=== PATIENT | female | born 1935 | race Caucasian/White ===

== ENCOUNTER → 2016-09-11 | Outpatient (CLI) | payer OTHER ==
[2016-09-11 12:02] LABS: FREE T4 (FREE THYROXINE) 1.08 ng/dL (0.93-1.71)
== END ==
LOC: MOB LAB 09:18
PROVIDERS: ATTEND Family Medicine
DX: E03.9 Hypothyroidism, unspecified (principal); I10 Essential (primary) hypertension; E66.9 Obesity, unspecified
CPT/HCPCS: 36415; 84439; 84443

== ENCOUNTER → 2016-09-12 | Outpatient (CLI) | payer OTHER | LOC: MMPC 09:00 | PROVIDERS: ATTEND Family Medicine | DX: I10 Essential (primary) hypertension (principal); E03.9 Hypothyroidism, unspecified; E66.8 Other obesity | CPT/HCPCS: 99213; G0463 ==

== ENCOUNTER 2017-09-17 16:50 | Observation (INO) ==
[2017-09-17] MEDS ORDERED: Sodium Chloride 0.9% 1,000 ML PRIMARY IV ONE (17:10)
[2017-09-17] MEDS ORDERED: DILTIAZEM 5 MG/ML - 5 ML IV ONE (17:10)
--- NOTE | 2017-09-17 17:12 | EKG ---
[address] [id number] Measurements Intervals Kake Rate: 141 P: IN: 0 QRS: 4 QRSD: 93 T: 56 QT: 300 QTc: 382 Interpretive Statements ATRIAL FIBRILLATION WITH RAPID VENTRICULAR RESPONSE SEPTAL MYOCARDIAL INFARCTION [40+ ms Q WAVE IN V1/V2], PROBABLY OLD Compared to ECG 04/08/2014 10:16:48 Myocardial infarct finding now present Sinus rhythm no longer present T-wave abnormality no longer present Electronically Signed On 09-18-17 08:37:06 MDT by Blair Hedrick MD [email or web address]
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
--- NOTE | 2017-09-17 18:25 | DI ---
AP CHEST X-RAY, 09/17/2017 5:10 PM : Clinical History: Irregular heart rate. Previous Exam: None at this facility. There is no acute soft tissue or bony abnormality. There is cardiomegaly without CHF. Lungs are clear . Mediastinal structures are normal. There are no pulmonary nodules. Reading: Mild cardiomegaly without CHF.
[2017-09-17] MEDS ORDERED: ENOXAPARIN SODIUM 80 MG/0.8 ML SYRINGE SUBCUT SCH (19:51)
[2017-09-17] MEDS ORDERED: LIDOCAINE W/ SODIUM BICARB 0.5 ML SYR SUBD PRN (19:51)
[2017-09-17] MEDS ORDERED: ENOXAPARIN SODIUM 100 MG/1 ML SYRINGE SUBCUT SCH (20:15)
[2017-09-17] MEDS ORDERED: Apixaban Tab 2.5 MG TABLET PO ONE (22:08)
[2017-09-17] MEDS: Metoprolol TARTRATE Tab 25 MG TAB PO SCH (22:56)
--- NOTE | 2017-09-17 23:59 | PDOC ---
HPI - History of Present Illness Date of Service: 09/17/17 Time of Service: 19:30 Chief Complaint: Not feeling well History of Present Illness: This very pleasant 82-year-old female who has underlying hypothyroidism, hypertension, and went into the clinic today to see her provider, Dr. Hua, for complaints of not feeling well. She described not feeling well as having butterfly-like sensations in her body and feeling like her abdomen was a little tight. She did not feel short of breath, she denies any chest pain, and she's never had this sensation before. She states it started on Saturday. She was little more fatigued and slept a lot on Saturday and Saturday when she was sleeping her symptoms seem to be better. She did not notice any other exacerbating factors that made her feel better or worse. In the clinic, she had an EKG that showed atrial fibrillation with rapid ventricular response and she was sent to the emergency room after some lab draws including her thyroid studies which did show a slightly elevated free T4 and an elevated TSH. She states to me that she sometimes misses some doses but is fairly compliant with her Synthroid. She's never had atrial fibrillation before. In the emergency room, she was given 15 mg of Cardizem, but she states that her butterfly-like sensation in her abdomen and body seemed to improve prior to Cardizem administration. Her heart rate in the emergency room was as high as 180 and it came down to 75. She did not spontaneously convert into sinus rhythm. She had an elevated d-dimer as well had a creatinine of 1.6 and it was felt that a VQ scan would be a good study to do to check for pulmonary embolism. She does not drink alcohol. She does not smoke. She has never had a prior heart attack. Her brain natruretic peptide was elevated. No prior echocardiogram or stress test. She does mention that about 20 years ago she may have had a possible stroke, but they were not clear after workup what she had had happened. She states that one of her feet, I believe the left lung, does not lift quite as well as the right. She states that is chronic. Past Medical History Medical History: 1. Hypothyroidism. 2. Hypertension Surgical History: Cholecystectomy Pertinent Family History: Significant for blood clots in her daughter and in several siblings Past Social History: Does not smoke or drink alcohol. . 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 Has 1 daughter who is described as healthy. Tobacco Use: Never Smoker In the Past 12 Months, Have Used or Abuse Any of the Following Substance: None Alcohol Use: None Medication / Allergies Home Medications: Home Medications 3 Medication Instructions Recorded Confirmed Type levothyroxine 88 mcg tablet 88 mcg PO DAILY #90 tab 04/11/17 09/17/17 Rx lisinopril 20 mg tablet 20 mg PO QD #90 tab 04/11/17 09/17/17 Rx lisinopril 20 1 tab PO QD #90 tab 04/11/17 09/17/17 Rx mg-hydrochlorothiazide 25 mg tablet Allergies/Adverse Reactions: Allergies 3 Allergy/AdvReac Type Severity Reaction Status Date / Time Penicillins AdvReac Unknown RASH Verified 09/17/17 17:34 Review of Systems - Review of Systems All Systems: Reviewed & No Additional Complaints Except as Stated (I did a 12 point review systems and it was negative other than that discussed in the history of present illness and then noted below.) - Musculoskeletal Musculoskeletal: REPORTS: Other (States that she has arthritis but well controlled.) Exam - Vitals Vital Signs: Vital Signs Temperature 97.7 F Temperature Source Temporal Artery Scan Pulse Rate [Pulse Oximeter 61 Right] Pulse Rate [Apical] 100 Pulse Rate [Telemetry] 181 Pulse Rate [Pulse Oximeter] 61 Pulse Rate 68 Respiratory Rate 20 Blood Pressure [Left Arm] 138/79 Blood Pressure 115/58 Pulse Ox 97 Oxygen Delivery Method Room Air Height 5 ft 7 in Weight 194 lb 4 oz - General General Appearance: No Acute Distress, Cooperative - Head Head Exam: Normal Inspection, Normocephalic, Atraumatic - Eye Eye Exam: POSITIVE: No Scleral Icterus - ENT ENT Exam: POSITIVE: Mucous Membranes Moist - Neck Neck Exam: Normal Inspection, No Tenderness, No Lymphadenopathy, No Thyromegaly , JVP is not Raised - Respiratory Respiratory Exam: POSITIVE: Clear to Auscultation - Bilaterally, Breathing Non Labored, Normal to Percussion and Palpation - Cardiovascular Cardiovascular Exam: POSITIVE: No Murmur, No Clicks, No Gallops, No Rubs, Irregular Rhythm, No JVD - GI/Abdominal GI/Abdominal Exam: POSITIVE: Normal Bowel Sounds, Non Tender, Non Distended, Soft - Rectal Rectal Exam: POSITIVE: Deferred - External Exam: POSITIVE: Deferred Exam: POSITIVE: Deferred - Extremities Extremities Exam: POSITIVE: No Clubbing Present, No Edema Present, No Cyanosis Present - Neurological Neurological Exam: POSITIVE: Alert, Oriented x 3, No Facial Droop, Speech Intact / Clear, Moves All Extremities Equally - Psychiatric Psychiatric Exam: POSITIVE: Normal Affect, Normal Mood - Integumentary Integumentary Exam: POSITIVE: Normal Color, Warm, Dry, Intact Results - Labs Additional Lab Results: 09/17/17 09/17/17 09/17/17 16:19 16:19 16:19 WBC 7.85 RBC 5.31 Hgb 15.2 Hct 46.3 MCV 87.2 MCH 28.6 MCHC 32.8 L RDW Std Deviation 45.1 RDW Coeff of Kade 14.2 Plt Count 263 MPV 10.9 PT INR D-Dimer Sodium 139 Potassium 4.7 Chloride 104 Carbon Dioxide 20 L Anion Gap 15 BUN 29 H Creatinine 1.6 H BUN/Creatinine Ratio 18.12 Glucose 131 H Calculated Osmolality 295.0 H Calcium 9.4 Magnesium Total Bilirubin 0.6 AST 28 ALT 33 Alkaline Phosphatase 74 CK-MB (CK-2) Troponin I Handheld Troponin I NT-Pro-B Natriuret Pep 5450 H Total Protein 7.3 Albumin 4.0 Globulin 3.3 Albumin/Globulin Ratio 1.20 L TSH 7.59 H Free T4 1.98 H 09/17/17 09/17/17 09/17/17 16:55 16:55 16:55 WBC RBC Hgb Hct MCV MCH MCHC RDW Std Deviation RDW Coeff of Kade Plt Count MPV PT 10.0 INR 0.97 D-Dimer 2.22 H Sodium Potassium Chloride Carbon Dioxide Anion Gap BUN Creatinine BUN/Creatinine Ratio Glucose Calculated Osmolality Calcium Magnesium 1.7 Total Bilirubin AST ALT Alkaline Phosphatase CK-MB (CK-2) 1.89 Troponin I Handheld Troponin I NT-Pro-B Natriuret Pep Total Protein Albumin Globulin Albumin/Globulin Ratio TSH Free T4 09/17/17 09/17/17 16:55 20:15 WBC RBC Hgb Hct MCV MCH MCHC RDW Std Deviation RDW Coeff of Kade Plt Count MPV PT INR D-Dimer Sodium Potassium Chloride Carbon Dioxide Anion Gap BUN Creatinine BUN/Creatinine Ratio Glucose Calculated Osmolality Calcium Magnesium Total Bilirubin AST ALT Alkaline Phosphatase CK-MB (CK-2) Troponin I Handheld 0.020 Troponin I 0.024 NT-Pro-B Natriuret Pep Total Protein Albumin Globulin Albumin/Globulin Ratio TSH Free T4 - EKG Data -: EKG Interpreted by Me Rate: Tachycardia - EKG Data When Compared to Previous EKG(s) There Are: Other (Prior EKG did not have atrial fibrillation) EKG Interpretation: Other (Atrial fibrillation with rapid ventricular response) - Imaging Status: Image Reviewed by Me (On my view of the chest x-ray, the patient had a slightly globular heart perhaps slightly enlarged, but no evidence of congestive heart failure) AFib Stroke Risk Screening - AFib Stroke Risk (CHADS-VASc) Atrial Fibrillation Ischemic Stroke Risk Factors: Hypertension (Placing on eliquis), Female, Age 75 years or older CHADS-VASc Score (A-Fib Stroke Risk Score): 4 CHADS-VASc Risk: High Risk Assessment and Plan - Patient Problems (1) Atrial fibrillation with rapid ventricular response Current Visit: Yes Status: Acute Code(s): I48.91 - Unspecified atrial fibrillation (2) Hypertension Current Visit: Yes Status: Acute Code(s): I10 - Essential (primary) hypertension Qualifiers: Hypertension type: essential hypertension Qualified Code(s): I10 - Essential (primary) hypertension (3) Hypothyroidism Current Visit: Yes Status: Acute Code(s): E03.9 - Hypothyroidism, unspecified Qualifiers: Hypothyroidism type: acquired Qualified Code(s): E03.9 - Hypothyroidism, unspecified (4) Chronic kidney disease, stage III (moderate) Current Visit: Yes Status: Acute Code(s): N18.3 - Chronic kidney disease, stage 3 (moderate) (5) Elevated d-dimer Current Visit: Yes Status: Acute Code(s): R79.89 - Other specified abnormal findings of blood chemistry - Assessment / Plan Additional Assessment/Plan Details: Admit the patient for observation, given the patient is rate controlled either with or without Cardizem, I think that she would benefit from beta blockade, and rate control. We discussed this at length and I'll start her on metoprolol 25 mg twice a day and stop the combine lisinopril/hydrochlorothiazide. Continue and hypertensive. We discussed anticoagulations. The patient and I spoke in depth regarding Coumadin versus Xarelto versus Eliquis, including all risks and benefits, risks being bleeding complications and possible pitfalls of not being able to reverse bleeding with antidotes, and benefits cream treatment of blood clot, lack of drug interactions, and ease of therapy in terms of lab monitoring. We also spoke about aspirin. I spoke with the patient and her daughter at bedside. The patient would like to be on Eliquis for stroke prevention. Her chads vasc to score is 4. Given her age, and creatinine, this would be 2.5 mg by mouth twice a day. Patient would benefit from a workup for coronary artery disease given that this is most likely underlying cause of atrial fibrillation at her age, there does not seem to be any underlying cause for this otherwise. The TSH and free T4 are difficult to interpret in this setting given an elevated TSH and an elevated free T4. I will not change her dose of Synthroid at this time. This should be retested. I recommended going ahead with a VQ scan to make sure there is no pulmonary emboli although I doubt this be the case. Given her age and creatinine at 1.6, and a little reluctant to do a contrast study CTA scan of the chest. I do think the patient would benefit from an echocardiogram. We will try to arrange an echocardiogram and a cardiology evaluation of that echocardiogram for the patient. She is not interested and stent placement and I'll make sure that the tube former operator we refer the patient to understands that. Labs in a.m.
[2017-09-18 01:51] LABS: BASOPHILS # (AUTO) 0.02 10*3/UL; BASOPHILS % (AUTO) 0.3 % (0-1); EOSINOPHILS # (AUTO) 0.19 10*3/UL; EOSINOPHILS % (AUTO) 2.7 % (0-8); Hematocrit [HCT] 41.4 % (37.0-47.0); Hemoglobin [HGB] 13.5 g/dL (12.0-16.0); MEAN CORPUSCULAR HEMOGLOBIN 28.8 PG (27-31); MEAN CORPUSCULAR HGB CONC 32.6 g/dL (33-37); MEAN CORPUSCULAR VOLUME 88.3 FL (81-99); MEAN PLATELET VOLUME 10.1 FL (7.4-12.2); MONOCYTES # (AUTO) 0.61 10*3/UL (0.3-0.8); MONOCYTES % (AUTO) 8.7 % (5-15); NEUTROPHILS # (AUTO) 3.69 10*3/UL; NEUTROPHILS % (AUTO) 52.6 % (50-80); RED BLOOD COUNT 4.69 10^6/uL (4.20-5.40)
[2017-09-18 02:02] LABS: PLATELET MORPHOLOGY COMMENT NORMAL MORPHOLOGY (NORM); RBC MORPHOLOGY COMMENT NORMAL MORPHOLOGY (NORM); WBC MORPHOLOGY COMMENT NORMAL MORPHOLOGY (NORM)
[2017-09-18] MEDS ORDERED: LEVOTHYROXINE 88 MCG TABLET PO SCH (05:30)
[2017-09-18] MEDS ORDERED: LEVOTHYROXINE 112 MCG TABLET PO SCH (05:30)
[2017-09-18] MEDS: LEVOTHYROXINE 88 MCG TABLET PO SCH (07:16)
[2017-09-18] MEDS: Apixaban Tab 2.5 MG TABLET PO SCH ×2 (09:13→21:08)
[2017-09-18] MEDS: LISINOPRIL 20 MG TABLET PO SCH (09:46)
[2017-09-18] MEDS: ASPIRIN EC 81 MG TABLET PO SCH (09:46)
[2017-09-18] MEDS: Metoprolol TARTRATE Tab 25 MG TAB PO SCH ×2 (12:01→21:08)
--- NOTE | 2017-09-18 15:15 | PDOC(PROG) ---
Date and Time of Service: 09/18/2017, 1514 Interval History: Patient doing fine today, no butterfly or flutter-like sensation. No chest pain , no shortness of breath. No nausea or vomiting. Objective : Data - Labs CBC and BMP: 09/18/17 01:49 Objective : Exam - General General Appearance: No Acute Distress, Cooperative Additional General Exam Details: Vital Signs - Last Taken Temperature 97.7 F 09/18/17 12:39 Pulse Rate 62 09/18/17 15:00 Respiratory Rate 18 09/18/17 12:39 Blood Pressure 112/62 09/18/17 12:39 Pulse Ox 94 09/18/17 12:39 - Eye Eye Exam: No Scleral Icterus - ENT ENT Exam: Mucous Membranes Moist - Respiratory Respiratory Exam: Clear to Auscultation - Bilaterally, Breathing Non Labored - Cardiovascular Cardiovascular Exam: No Murmur, No Clicks, No Gallops, No Rubs, Irregular Rhythm, No JVD - GI/Abdominal GI/Abdominal Exam: Normal Bowel Sounds, Non Tender, Non Distended, Soft - Extremities Extremities Exam: No Clubbing Present, No Edema Present, No Cyanosis Present - Neurological Neurological Exam: Alert, Oriented x 3, No Facial Droop, Speech Intact / Clear, Moves All Extremities Equally - Psychiatric Psychiatric Exam: Normal Affect, Normal Mood Assessment and Plan - Patient Problems (1) Atrial fibrillation with rapid ventricular response Current Visit: Yes Status: Acute Code(s): I48.91 - Unspecified atrial fibrillation (2) Hypertension Current Visit: Yes Status: Acute Code(s): I10 - Essential (primary) hypertension Qualifiers: Hypertension type: essential hypertension Qualified Code(s): I10 - Essential (primary) hypertension (3) Hypothyroidism Current Visit: Yes Status: Acute Code(s): E03.9 - Hypothyroidism, unspecified Qualifiers: Hypothyroidism type: acquired Qualified Code(s): E03.9 - Hypothyroidism, unspecified (4) Chronic kidney disease, stage III (moderate) Current Visit: Yes Status: Acute Code(s): N18.3 - Chronic kidney disease, stage 3 (moderate) (5) Elevated d-dimer Current Visit: Yes Status: Acute Code(s): R79.89 - Other specified abnormal findings of blood chemistry - Assessment / Plan Additional Assessment/Plan Details: Continue beta norman for rate control and novel oral anticoagulants therapy for stroke prevention. Cardiac stress test undergoing, with rest phase today, stressed face tomorrow. I think we can work on getting a VQ scan as an outpatient to recheck for pulmonary emboli but she is on treatment with novel oral anticoagulants at this time. Cardiac evaluation with echocardiogram as an outpatient. I will see if we can work the patient in for a clinic visit and echocardiogram hopefully by Saturday or Saturday.
[2017-09-19] MEDS: LEVOTHYROXINE 88 MCG TABLET PO SCH (04:54)
[2017-09-19] MEDS ORDERED: METOPROLOL TARTRATE 5 MG/5 ML VIAL IVP STA (09:13)
--- NOTE | 2017-09-19 10:17 | STRESSTEST ---
[facility] [place] Interpretive Statements THis is a very pleasant 82 YO female that presented with new onset atrial fibrillation with RVR. ruled out for ME. Has HTN as risk factor. tele monitoring and resting EKG today show afib, rate controlled, with frequent PVC''s. exercised with María scan protocol with resting images yesterday. Stressed today. Developed afib with RVR. felt fast HR. frequent PVC''s. hemodynamically stable BP. Plan: stress images today, radiology to review. will give 5 mg metoprolol IV to decrease HR. [email or web address]
[2017-09-19] MEDS: Apixaban Tab 2.5 MG TABLET PO SCH (10:20)
[2017-09-19] MEDS: LISINOPRIL 20 MG TABLET PO SCH (10:20)
[2017-09-19] MEDS: ASPIRIN EC 81 MG TABLET PO SCH (10:20)
[2017-09-19] MEDS: Metoprolol TARTRATE Tab 25 MG TAB PO SCH (10:20)
[2017-09-19 11:53] VITALS: O2SAT 95
--- NOTE | 2017-09-19 14:44 | DI ---
2 DAY LEXISCAN STRESS & REST MYOCARDIAL PERFUSION SCANS, 09/18/2017 - 09/19/2017: Clinical History: Near onset of atrial fibrillation. Previous Exam: None at this facility. Monitoring Physician: Dr. Tye Luna. Dose: Stress dose: 32 mCi on 09/19/2017. Rest dose: 31 mCi on 09/18/2017. Quantitative Analysis: Foound program with low dose limited CT chest scan attenuation correctio n. Exam Quality: Good to very good. Rejected Beats: Stress = 25%; Rest = 25%. HR: Stress = 68/83 b/m; R est = 66-79 b/m. Left ventricular chamber sizes are normal at stress and rest. Transient ischemic dilatation ratio is 1.25 (normal [facility] TID <= 1.22; normal Lexiscan TID <= 1.33). Stress LVEF: 59%; rest LVEF: 55%. Both the attenuated and the non-attenuated corrected scans show an anterior stress defect that shows compl ete reperfusion indicating ischemia. The remaining segments show normal perfusion at stress and rest. There is hypokinesis in the anterior wall and septum at stress and rest. All other mullins contract vi gorously. There is normal myocardial thickening at stress and rest. Limited CT scans of the heart prosper cifications in the left mainstem and the proximal and middle thirds of the LAD as well as in the circ umflex and right coronary arteries. Calcifications are present in the mitral valve annulus as well as in the aortic valve leaflets. There is left atrial enlargement with pulmonary tear or hypertension. 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 The mitral valvular disease would account for the left atrial enlargement and the pulmonary arterial hypertension. There are no lung n odules or enlarged nodes. Readin. Normal stress and rest left ventricular chamber size. Transient ischemic dilatation ratio is 1.25 . 2. Low normal stress and rest LVEF values of 59 and 55%, respectively. 3. There is a reversible defect seen on both the attenuated and non-attenuated corrected scans invol ving the anterior wall. This segment in the septum show hypokinesis at stress and rest. All other wal ls show normal perfusion and wall motion at stress and rest. There is normal myocardial thickening at stress and rest. 4. Coronary artery calcifications are present in the proximal and middle thirds of the LAD, and the right coronary and the left circumflex artery. 5. There is pulmonary arterial hypertension without evidence of obvious chronic lung disease. There is left atrial enlargement as well as calcific aortic valvular disease. This patient may also have mi ld to globular disease all secondary to rheumatic valvular disease.
[2017-09-19] MEDS ORDERED: ATORVASTATIN 40 MG TABLET PO ONE (15:39)
--- NOTE | 2017-09-19 15:51 | DCSUMMARY ---
Hospitalization Summary Admit Date: 09/17/2017 Discharge Date: 09/19/17 Primary Diagnosis:: coronary artery disease, unstable angina Hospital Course: This very pleasant 82-year-old female who came in with a fluttering-like sensation in her chest and body and she was found to have atrial fibrillation with rapid ventricular response. We were able to admit her, calmed her heart rate down with the Cardizem and then eventually metoprolol. She ruled out for myocardial infarction. We did a stress test and it was positive for anterior wall reversibility in both the stress and rest imaging with reversible defect. We had several discussions with the patient regarding her options, but given the positive stress test, I think she does warrant having a catheterization performed and I spoke with Dr. [place] [place] and he agreed to take the patient. In terms of the atrial fibrillation, we had a discussion regarding stroke prevention. The patient chose eliquis to help prevent stroke. She has had a dose this morning. She is dosed at 2.5 mg due to her age and her creatinine at 1.6. An echocardiogram still needs to be done. She did not have evidence of thyroid disease. Given that she had new onset atrial fibrillation, I felt a stress test was warranted and we did a Lexiscan stress test as coronary artery disease is a very common cause of atrial fibrillation. Stress test was positive with a reversible defect in the anterior wall with hypokinesis. Ejection fractions preserved. Noted calcifications in coronary arteries including the LAD, RCA, and others. I did some cholesterol testing and found hypercholesterolemia with an LDL of 194. We started the patient on Lipitor. We placed the patient on aspirin. Although she is not having active chest pain, given atrial fibrillation and the fluttering and butterfly-like sensation in her body and then her chest, do think this is probably an equivalent of symptomatic coronary artery disease or unstable angina. I will hold off on any heparin drip until the patient arrives in [place] and defer that to cardiology. For her hypertension, I stopped her lisinopril/hydrochlorothiazide. She denies any chest pain today denies any shortness breath. Denied any nausea or vomiting. Assessment and Plan: 1. As per discharge assessments noted 2. Disposition: Patient is discharged [facility] [place] 3. Condition on discharge, stable, but condition could worsen. 4. Diet: regular diet 5. Activities: resume normal activities 6. Follow-Up: 1. DR. Mayo in the clinic in [place]. 2. 7. Medications at the Time of Discharge: Active Medications Generic Name Dose Route Start Last Admin Trade Name Freq PRN Reason Stop Dose Admin Apixaban 2.5 mg 09/18/17 09:00 09/19/17 10:20 Eliquis PO 2.5 mg BID MELINDA Administration Aspirin 81 mg 09/18/17 09:00 09/19/17 10:20 Aspirin Ec PO 81 mg DAILY MELINDA Administration Atorvastatin Calcium 40 mg 09/19/17 21:00 Lipitor PO BEDTIME MELINDA Levothyroxine Sodium 88 mcg 09/18/17 05:30 09/19/17 04:54 Synthroid PO 88 mcg DAILY@0530 MELINDA Administration Lidocaine HCl 0.5 ml 09/17/17 19:51 Lidocaine Buffered Inj SUBD ONCE PRN IV Starts Lisinopril 20 mg 09/18/17 09:00 09/19/17 10:20 Prinivil PO 20 mg DAILY MELINDA Administration Metoprolol Tartrate 25 mg 09/17/17 21:00 09/19/17 10:20 Lopressor Tab PO 25 mg BID MELINDA Administration 8. Time, care, counseling and coordination of care for this discharge is greater than 30 minutes. Exam - Vitals Vital Signs: Vital Signs Vital Signs - Last Taken Temperature 97.2 F 09/19/17 11:53 Pulse Rate 69 09/19/17 11:53 Respiratory Rate 18 09/19/17 11:53 Blood Pressure 113/67 09/19/17 11:53 Pulse Ox 95 09/19/17 11:53 Oxygen Delivery Method Room Air Height 5 ft 7 in Weight 197 lb 3.2 oz - General General Appearance: No Acute Distress, Cooperative - Head Head Exam: Normal Inspection, Normocephalic, Atraumatic - Eye Eye Exam: POSITIVE: No Scleral Icterus - ENT ENT Exam: POSITIVE: Mucous Membranes Moist - Respiratory Respiratory Exam: POSITIVE: Clear to Auscultation - Bilaterally, Breathing Non Labored - Cardiovascular Cardiovascular Exam: POSITIVE: No Murmur, No Clicks, No Gallops, No Rubs, Irregular Rhythm, No JVD - GI/Abdominal GI/Abdominal Exam: POSITIVE: Normal Bowel Sounds, Non Tender, Non Distended, Soft - Extremities Extremities Exam: POSITIVE: No Clubbing Present, No Edema Present, No Cyanosis Present - Neurological Neurological Exam: POSITIVE: Alert, Oriented x 3, No Facial Droop, Speech Intact / Clear, Moves All Extremities Equally Data Peritnent Studies: Laboratory Results 09/19/17 Range/Units 04:22 Triglycerides 68 (44-200) mg/dL Cholesterol 260 H (120-200) mg/dL LDL Cholesterol, Calc 194.400 mg/dL VLDL Cholesterol 13 (0-40) mg/dL HDL Cholesterol 52 (40-150) mg/dL Cholesterol/HDL Ratio 5.00 H (0-4.0) RATIO 04/08/14 09/17/17 09/17/17 11:02 16:19 16:19 WBC Hgb Hct Plt Count PT INR D-Dimer Sodium 139 Potassium 4.7 Chloride 104 Carbon Dioxide 20 L Anion Gap 15 BUN 29 H Creatinine 1.6 H Glucose 131 H Calculated Osmolality 295.0 H Calcium 9.4 Magnesium AST 28 ALT 33 Alkaline Phosphatase 74 Troponin I Handheld Troponin I NT-Pro-B Natriuret Pep 5450 H Total Protein 7.3 Albumin 4.0 Globulin 3.3 Albumin/Globulin Ratio 1.20 L Triglycerides Cholesterol LDL Cholesterol, Calc VLDL Cholesterol HDL Cholesterol Cholesterol/HDL Ratio T3 (GEORGINA) 69 L TSH 7.59 H Free T4 1.98 H 09/17/17 09/17/17 09/17/17 16:55 16:55 20:15 WBC Hgb Hct Plt Count PT 10.0 INR 0.97 D-Dimer 2.22 H Sodium Potassium Chloride Carbon Dioxide Anion Gap BUN Creatinine Glucose Calculated Osmolality Calcium Magnesium AST ALT Alkaline Phosphatase Troponin I Handheld 0.020 Troponin I 0.024 NT-Pro-B Natriuret Pep Total Protein Albumin Globulin Albumin/Globulin Ratio Triglycerides Cholesterol LDL Cholesterol, Calc VLDL Cholesterol HDL Cholesterol Cholesterol/HDL Ratio T3 (GEORGINA) TSH Free T4 09/18/17 09/18/17 09/18/17 01:49 01:49 01:49 WBC 7.02 Hgb 13.5 Hct 41.4 Plt Count 231 PT INR D-Dimer Sodium Potassium Chloride Carbon Dioxide Anion Gap BUN Creatinine Glucose Calculated Osmolality Calcium Magnesium 1.8 AST ALT Alkaline Phosphatase Troponin I Handheld Troponin I 0.039 NT-Pro-B Natriuret Pep Total Protein Albumin Globulin Albumin/Globulin Ratio Triglycerides Cholesterol LDL Cholesterol, Calc VLDL Cholesterol HDL Cholesterol Cholesterol/HDL Ratio T3 (GEORGINA) TSH Free T4 09/18/17 09/19/17 07:40 04:22 WBC Hgb Hct Plt Count PT INR D-Dimer Sodium Potassium Chloride Carbon Dioxide Anion Gap BUN Creatinine Glucose Calculated Osmolality Calcium Magnesium AST ALT Alkaline Phosphatase Troponin I Handheld Troponin I 0.039 NT-Pro-B Natriuret Pep Total Protein Albumin Globulin Albumin/Globulin Ratio Triglycerides 68 Cholesterol 260 H LDL Cholesterol, Calc 194.400 VLDL Cholesterol 13 HDL Cholesterol 52 Cholesterol/HDL Ratio 5.00 H T3 (GEORGINA) TSH Free T4 Procedures: [address] [facility]. [facility] [place] [address] PH: [phone]: [phone] FAX: [phone] ~DIAGNOSTIC IMAGING REPORT~ Patient: JANNY LEROY : 1935 Sex: F Age: 82 Exam Name: IA Myocardial Multi-Spect Exam Date: 09/18/17 Report # : [id number] CPT Code: 66866 EMR/MR #: [id number] Ordering: NORTH MACDONALD Admiting: NORTH MACDONALD DO Primary: Reggie Mayo MD Attending: NORTH MACDONALD DO Signed 2 DAY LEXISCAN STRESS & REST MYOCARDIAL PERFUSION SCANS, 09/18/2017 - 09/19/2017: Clinical History: Near onset of atrial fibrillation. Previous Exam: None at this facility. Monitoring Physician: Dr. North Macdonald. Dose: Stress dose: 32 mCi on 09/19/2017. Rest dose: 31 mCi on 09/18/2017. Quantitative Analysis: Ripple TV program with low dose limited CT chest scan attenuation correction. Exam Quality: Good to very good. Rejected Beats: Stress = 25%; Rest = 25%. HR: Stress = 68/83 b/m; Rest = 66-79 b/m. Left ventricular chamber sizes are normal at stress and rest. Transient ischemic dilatation ratio is 1.25 (normal [facility] TID <= 1.22; normal Lexiscan TID <= 1.33). Stress LVEF: 59%; rest LVEF: 55%. Both the attenuated and the non- attenuated corrected scans show an anterior stress defect that shows complete reperfusion indicating ischemia. The remaining segments show normal perfusion at stress and rest. There is hypokinesis in the anterior wall and septum at stress and rest. All other mullins contract vigorously. There is normal myocardial thickening at stress and rest. Limited CT scans of the heart calcifications in the left mainstem and the proximal and middle thirds of the LAD as well as in the circumflex and right coronary arteries. Calcifications are present in the mitral valve annulus as well as in the aortic valve leaflets. There is left atrial enlargement with pulmonary tear or hypertension. 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 The mitral valvular disease would account for the left atrial enlargement and the pulmonary arterial hypertension. There are no lung nodules or enlarged nodes. Readin. Normal stress and rest left ventricular chamber size. Transient ischemic dilatation ratio is 1.25. 2. Low normal stress and rest LVEF values of 59 and 55%, respectively. 3. There is a reversible defect seen on both the attenuated and non-attenuated corrected scans involving the anterior wall. This segment in the septum show hypokinesis at stress and rest. All other mullins show normal perfusion and wall motion at stress and rest. There is normal myocardial thickening at stress and rest. 4. Coronary artery calcifications are present in the proximal and middle thirds of the LAD, and the right coronary and the left circumflex artery. 5. There is pulmonary arterial hypertension without evidence of obvious chronic lung disease. There is left atrial enlargement as well as calcific aortic valvular disease. This patient may also have mild to globular disease all secondary to rheumatic valvular disease. Dictated By: 09/19/17 1412 GABRIELA MAST MD. Signed By: 09/19/17 1444 GABRIELA MAST MD. Patient Problems - Patient Problem List (1) Coronary artery disease Current Visit: Yes Status: Acute Code(s): I25.10 - Atherosclerotic heart disease of [place] coronary artery without angina pectoris Qualifiers: Coronary Disease-Associated Artery/Lesion type: [place] artery [place] vs. transplanted heart: [place] heart Associated angina: with unspecified angina Qualified Code(s): I25.119 - Atherosclerotic heart disease of [place] coronary artery with unspecified angina pectoris Category: Medical (2) Atrial fibrillation with rapid ventricular response Current Visit: Yes Status: Acute Code(s): I48.91 - Unspecified atrial fibrillation Category: Medical (3) Hypertension Current Visit: Yes Status: Acute Code(s): I10 - Essential (primary) hypertension Qualifiers: Hypertension type: essential hypertension Qualified Code(s): I10 - Essential (primary) hypertension Category: Medical (4) Hypothyroidism Current Visit: Yes Status: Acute Code(s): E03.9 - Hypothyroidism, unspecified Qualifiers: Hypothyroidism type: acquired Qualified Code(s): E03.9 - Hypothyroidism, unspecified Category: Medical (5) Chronic kidney disease, stage III (moderate) Current Visit: Yes Status: Acute Code(s): N18.3 - Chronic kidney disease, stage 3 (moderate) Category: Medical (6) Elevated d-dimer Current Visit: Yes Status: Acute Code(s): R79.89 - Other specified abnormal findings of blood chemistry Category: Medical
[2017-09-19 16:55] VITALS: BP 137/80; RESP 12; TEMP 98.2
[2017-09-19] MEDS ORDERED: ATORVASTATIN 40 MG TABLET PO SCH (21:00)
== END 2017-09-19 16:16 | disposition short-term general hospital (02) ==
LOC: MED/SURG 16:50 → ER 16:50 → MED/SURG 19:30
PROVIDERS: ADMIT Family Medicine; ATTEND Family Medicine

== ENCOUNTER 2018-07-18 03:43 | Inpatient (IN) ==
--- NOTE | 2018-07-18 04:05 | PDOC ---
Abdomen/Flank HPI - General Chief Complaint: Abdomen Pain Stated Complaint: ABDOMEN PAIN Date Seen by Provider: 07/18/18 Time Seen by Provider: 04:05 Source: POSITIVE: Patient Exam Limitations: POSITIVE: No limitations - History of Present Illness Initial Comments: Delmy Shrestha is a 83-year-old female who presents to the emergency department with abdominal pain. Patient reports this started over the last 24 hours. It is in the right lower quadrant and radiates across the abdomen. No specific exacerbating or relieving factors. Pain is mild to moderate in overall severity. She has not had any nausea, vomiting, diarrhea. Patient had a CABG in 2018 patient denies any chest pain shortness of breath. Patient encase her bowel movements have been normal patient or diarrhea. Pain is achy and sharp in nature. - Patient Home Medications Home Medications: Home Medications Calcitriol 0.25 mcg PO MOWEFR 11/27/17 apixaban 5 mg tablet 5 mg PO BID #180 tab 06/03/18 atorvastatin 40 mg tablet 40 mg PO QDAY #90 tab 06/03/18 metoprolol succinate ER 25 mg tablet,extended release 24 hr 12.5 mg PO BID #90 tab 06/03/18 torsemide 20 mg tablet 20 mg PO QDAY #90 tab 06/03/18 levothyroxine 88 mcg tablet 88 mcg PO DAILY #90 tab 06/05/18 Ergocalciferol (Vitamin D2) [Vitamin D2] 1 cap PO WEEKLY 07/18/18 Ferrous Sulfate EC [Feosol EC] 325 mg PO PROCEDURE 07/18/18 Metoprolol Succinate 50 mg PO DAILY 07/18/18 Potassium Chloride 1 cap PO DAILY 07/18/18 - Patient Allergies Allergies/Adverse Reactions: Allergies Allergy/AdvReac Type Severity Reaction Status Date / Time Penicillins AdvReac Unknown RASH Verified 11/05/17 11:14 Past Medical History - heen HEENT History: Hard of Hearing Cardiovascular History: Hypertension, Other (please comment) Additional Cardiovasular History: BYPASS X 4, atrial fibrillation Respiratory History: Denies History Gastrointestinal History: Other (please comment) Additional Gastrointestinal History: OCC. CONSTIPATION Genitourinary History: Renal Disease Endocrine History: Hypothyroidism Musculoskeletal History: Denies History Prosthesis or Implant: No Neurological History: Denies History Blood Disorders: Denies History Psychiatric History: Denies History History of Sexually Transmitted Diseases: No Female Reproductive History: Denies History Obstetrical History: Denies History Cancer History: Denies History In Past Year Been Physically Harmed or Verbally Threatened: No History of MDRO: No History of Other Communicable Diseases: No Tobacco Use: Never Smoker In the Past 12 Months, Have Used or Abuse Any Substance: None Previous Surgical History: Yes Type / Date of Surgery: gall bladder 1998, cataract sx - 2013. OPEN HEART- BYPASS X 4 2017 Significant Family History: No pertinent family hx Past Medical History Reviewed: Reviewed - Changes Made ROS - Limitations ROS Limitations: No Limitations Constitution: REPORTS: Denies Symptoms Cardiovascular: REPORTS: Denies Cardiac Symptoms Respiratory: REPORTS: Denies Resp Symptoms Neurological: REPORTS: Denies Neuro Symptoms Gastrointestinal: REPORTS: Abdominal Pain Endocrine: REPORTS: Denies Symptoms Musculoskeletal: REPORTS: Denies MS Symptoms Genitourinary: REPORTS: Denies Symptoms Eyes: REPORTS: Denies Symptoms ENT: REPORTS: Denies Symptoms Skin: REPORTS: Denies Skin Symptoms Lympathic: REPORTS: Denies Lympathic Symptoms Immunologic: POSITIVE: Denies Symptoms Psychiatric: POSITIVE: Denies Psych Symptoms Abdominal/Flank Pain PE - General Appearance General Appearance: POSITIVE: Alert, Cooperative, No Acute Distress, No Evidence of Trauma, Anxious - HEENT HEENT: POSITIVE: Head Inspection Nml, Eyes Inspection Nml - Respiratory Respiratory: POSITIVE: No Respiratory Distress, Breath Sounds Normal - Cardiovascular Cardiovascular: POSITIVE: Irregularly Irreg Rhythm, Tachycardia - Abdomen Additional Abdominal Details: There is mild tenderness to palpation primarily in the right lower quadrant no rebound or guarding normal bowel sounds - Skin Skin: POSITIVE: Intact, Normal For Race, Warm, Dry - Extremities Extremity: Non-Tender: (All Extremities) - Neurological Neurological: POSITIVE: 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, Oriented X3 - Psychological Psychiatric: POSITIVE: Affect Appropriate Abdomen Progress - Results Reviewed by me Lab Results Reviewed by Me: Yes CBC and BMP: 07/18/18 04:10 07/18/18 04:10 - Patient's Progress MDM / ED Course: Patient is an 83-year-old female who presents to the emergency department with abdominal pain. Her vital signs are notable for slight tachycardia and examination demonstrates tenderness to palpation in the right lower quadrant. Differential diagnosis includes but is not limited to appendicitis, urinary tract infection, constipation, volvulus, renal stone. Patient's CT scan dem onstrates acute appendicitis with dilated appendix and periappendiceal inflammation. White blood cell count is reasonable. Her renal function demonstrates mild increase in BUN/creatinine though this is better than priors. The patient was started on ceftriaxone and metronidazole. She was given a dose of Zofran here and was declining pain medication. I spoke with the on-call surgeon who recommended transfer to outside facility given patient's history of cardiac disease. I spoke with [facility] unfortunately they did not have any beds available at this time. Family was hesitant to go to [place] or to [place]. I spoke with the on- call surgeon again he reevaluated patient at bedside and will keep patient here. EKG was obtained to stand straight atrial fibrillation slightly rapid ventricular rate in 110. She was given metoprolol IV 5 mg 2. Chest x-rays obtained shows him strict mild cardiomegaly appears to have chronic failure no significant acute pulmonary edema. The patient's pain was well-controlled and she'll admitted for further treatment. Patient Care Time - Estimated PCT Patient Care Time (In Minutes): 75 Vital Signs - VS Reviewed Vital Signs Reviewed: Yes Discharge Clinical Impression: Atrial fibrillation with rapid ventricular response Acute appendicitis Qualifiers: Acute appendicitis type: unspecified acute appendicitis type Qualified Code(s): K35.80 - Unspecified acute appendicitis Discharge Disposition: Admit to Inpatient Condition: Good Follow Up With: NATHANIEL KEMP [Primary Care Provider] - Date Decision to Admit to Inpatient: 07/18/18 Time Decision to Admit to Inpatient: 08:56
[2018-07-18] MEDS ORDERED: ONDANSETRON 4 MG/2 ML VIAL IVP ONE (04:06)
[2018-07-18] MEDS ORDERED: Sodium Chloride 0.9% 1,000 ML PRIMARY IV ONE (04:06)
[2018-07-18] MEDS ORDERED: fentaNYL Inj 100 MCG/2 ML VIAL IVP ONE (04:06)
[2018-07-18 04:12] LABS: BASOPHILS # (AUTO) 0.01 10*3/UL; BASOPHILS % (AUTO) 0.1 % (0-1); EOSINOPHILS # (AUTO) 0.05 10*3/UL; EOSINOPHILS % (AUTO) 0.6 % (0-8); Hematocrit [HCT] 42.9 % (37.0-47.0); MEAN CORPUSCULAR HEMOGLOBIN 29.9 PG (27-31); MEAN CORPUSCULAR HGB CONC 32.6 g/dL (33-37); MEAN CORPUSCULAR VOLUME 91.7 FL (81-99); MEAN PLATELET VOLUME 10.6 FL (7.4-12.2); MONOCYTES # (AUTO) 0.56 10*3/UL (0.3-0.8); MONOCYTES % (AUTO) 6.5 % (5-15); NEUTROPHILS # (AUTO) 7.03 10*3/UL; NEUTROPHILS % (AUTO) 81.2 % (50-80); RED BLOOD COUNT 4.68 10^6/uL (4.20-5.40)
[2018-07-18 04:14] LABS: PLATELET MORPHOLOGY COMMENT NORMAL MORPHOLOGY (NORM); RBC MORPHOLOGY COMMENT NORMAL MORPHOLOGY (NORM); WBC MORPHOLOGY COMMENT NORMAL MORPHOLOGY (NORM)
[2018-07-18 04:21] LABS: BLOOD UREA NITROGEN 23 mg/dL (7-22); BUN/CREATININE RATIO 16.42 (6-20); LIPASE 94 IU/L (23-300); SERUM ALBUMIN 3.9 g/dL (3.5-4.8)
--- NOTE | 2018-07-18 06:03 | DI ---
EXAM: CT Abdomen and Pelvis Without Intravenous Contrast CLINICAL HISTORY: ITS.REASON ABDOMEN PAIN Physician Notes: Tech Comments: TECHNIQUE: Axial computed tomography images of the abdomen and pelvis without intravenous contrast. COMPARISON: No relevant prior studies available. FINDINGS: Lung bases: 6 mm calcified granuloma in the right middle lobe lung. Bibasilar subsegmental atelectasis. Heart: There is mitral annular calcification in the heart. Mediastinum: Small hiatal hernia. ABDOMEN: Liver: Unremarkable. Gallbladder and bile ducts: Status post cholecystectomy. No ductal dilation. Pancreas: Unremarkable. No ductal dilation. Spleen: Unremarkable. No splenomegaly. Adrenals: Unremarkable. No mass. Kidneys and ureters: Multiple bilateral parapelvic renal cysts measuring up to 2.0 x 1.2 cm. No radiopaque renal or ureteral calculi. No hydronephrosis. Stomach and bowel: Unremarkable. No obstruction. No mucosal thickening. PELVIS: Appendix: The appendix is abnormally dilated up to 10 mm and shows a moderate amount of periappendiceal inflammation consistent with appendicitis. No free air or abscess. Bladder: Urinary bladder is underdistended. No stones. Reproductive: Unremarkable as visualized. ABDOMEN and PELVIS: Intraperitoneal space: Small amount of free fluid in the pelvis. Bones/joints: Degenerative changes in the lower thoracic spine. Grade 1 anterolisthesis of L4 over L5. No acute fracture. No dislocation. Soft tissues: Unremarkable. Vasculature: Atherosclerosis of the abdominal aorta and bilateral iliac arteries. No abdominal aortic aneurysm. Lymph nodes: Unremarkable. No enlarged lymph nodes. IMPRESSION: Findings consistent with acute appendicitis. No free air or abscess. <MYCVCSECTION> Critical Value Communications 07/18/18 06:11 Call Doctor Regarding Appendicitis, called Dr. Navarro Silverman on 07/18 06:11 (-06:00)
[2018-07-18] MEDS ORDERED: cefTRIAXone Inj 2 GM in Sodium Chloride 0.9% 100 ML IV ONE (06:13)
[2018-07-18] MEDS ORDERED: metroNIDAZOLE 500mg (Premix) 500 MG/100 ML BAG IV ONE (06:13)
[2018-07-18] MEDS ORDERED: METOPROLOL TARTRATE 5 MG/5 ML VIAL IVP ONE ×2 (06:30→07:33)
--- NOTE | 2018-07-18 06:30 | EKG ---
[address] [place] [address] Measurements Intervals [place] Rate: 109 P: MD: 0 QRS: 86 QRSD: 103 T: -59 QT: 343 QTc: 407 Interpretive Statements ATRIAL Fibrillation WITH RAPID VENTRICULAR RESPONSE WITH ABERRANT CONDUCTION OR VENTRICULAR PREMATURE COMPLEXES SEPTAL MYOCARDIAL INFARCTION [40+ ms Q WAVE IN V1/V2], PROBABLY OLD Compared to ECG 09/17/2017 16:16:51 Ventricular premature complex(es) now present Aberrant conduction of supraventricular beat(s) now present Atrial fibrillation is still present Myocardial infarct finding still present Electronically Signed On 07-18-18 08:54:30 MDT by Blair Hedrick MD [email or web address]
--- NOTE | 2018-07-18 08:21 | DI ---
AP CHEST X-RAY, 07/18/2018 7:58 AM : Clinical History: Preoperative evaluation. The patient has acute appendicitis. Previous Exam: 09/17/2017. Soft Tissues: No acute soft tissue abnormality. Then, the patient has had a median sternotomy with wh at apparently is a pulmonic valve replacement as well as CABG. Bones: Normal. Heart: Cardiomegaly. There is reversal flow to the upper lobes with perivascular haziness and peribro nchial thickening indicating left heart failure. The right heart is dilated and the azygos vein is hidalgo bstantially larger than on the previous exam and there is widening of the vascular pedicle and more p rominent dilatation of the right heart margin. These changes would indicate right heart failure. Lungs: No infiltrates. Effusion(s): None. Mediastinum: Pulmonary arterial hypertension. Nodules: No pulmonary nodules. Readin. No acute infiltrate or effusion. 2. Chronic biventricular failure. 3. 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
--- NOTE | 2018-07-18 09:12 | PDOC ---
HPI - History of Present Illness Date of Service: 07/18/18 Time of Service: 09:08 Chief Complaint: Right lower quadrant abdominal pain History of Present Illness: This is a 83-year-old female who has history of coronary artery disease. She comes in with the right lower quadrant abdominal pain. This is started third day for the pain. She states that it's just getting worse. The pain is located in the right lower quadrant. Patient denies ever running a fever. She has no nausea vomiting. No diarrhea or constipation. She denies any chest pain. Patient's white count is unremarkable. Patient had a CT scan that showed a 10 mm appendix with appear appendiceal fluid. No fecaliths seen. This is seen. Past Medical History Medical History: 1. Hypothyroidism. 2. Hypertension. 3. Atrial fib rillation. 4. Coronary artery disease Surgical History: Cholecystectomy, four-vessel bypass surgery Pertinent Family History: Significant for blood clots in her daughter and in several siblings Past Social History: Does not smoke or drink alcohol. . 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 Has 1 daughter who is described as healthy. Tobacco Use: Never Smoker In the Past 12 Months, Have Used or Abuse Any of the Following Substance: None Medication / Allergies Home Medications: Home Medications Medication Instructions Recorded Confirmed Calcitriol 0.25 mcg PO MOWEFR 11/27/17 07/18/18 apixaban 5 mg tablet 5 mg PO BID #180 tab 06/03/18 07/18/18 atorvastatin 40 mg tablet 40 mg PO QDAY #90 tab 06/03/18 07/18/18 metoprolol succinate ER 25 mg 12.5 mg PO BID #90 tab 06/03/18 07/18/18 tablet,extended release 24 hr torsemide 20 mg tablet 20 mg PO QDAY #90 tab 06/03/18 07/18/18 levothyroxine 88 mcg tablet 88 mcg PO DAILY #90 tab 06/05/18 07/18/18 Ergocalciferol (Vitamin D2) 1 cap PO WEEKLY 07/18/18 07/18/18 [Vitamin D2] Ferrous Sulfate EC [Feosol EC] 325 mg PO PROCEDURE 07/18/18 07/18/18 Metoprolol Succinate 50 mg PO DAILY 07/18/18 07/18/18 Potassium Chloride 1 cap PO DAILY 07/18/18 07/18/18 Allergies/Adverse Reactions: Allergies Allergy/AdvReac Type Severity Reaction Status Date / Time Penicillins AdvReac Unknown RASH Verified 11/05/17 11:14 Exam - Vitals Vital Signs: Vital Signs Temperature 96.3 F Pulse Rate [Pulse Oximeter] 111 Pulse Rate 111 Respiratory Rate 18 Blood Pressure [Left Arm] 121/77 Blood Pressure 138/79 Pulse Ox 92 Oxygen Delivery Method Room Air Height 5 ft 7 in Weight 185 lb - General General Appearance: No Acute Distress, Cooperative - Head Head Exam: Normocephalic - Neck Neck Exam: Full ROM - Respiratory Respiratory Exam: POSITIVE: Clear to Auscultation - Bilaterally, Breathing Non Labored - Cardiovascular Cardiovascular Exam: POSITIVE: RRR, No Murmur - GI/Abdominal GI/Abdominal Exam: POSITIVE: Positive for RUQ Pain (No rigidity or guarding. Patient has a negative Rovsing sign) Results - Labs CBC and BMP: 07/18/18 04:10 07/18/18 04:10 Assessment and Plan - Patient Problems (1) Acute appendicitis Current Visit: Yes Status: Acute Code(s): K35.80 - Unspecified acute appendicitis Qualifiers: Acute appendicitis type: unspecified acute appendicitis type Qualified Code(s): K35.80 - Unspecified acute appendicitis (2) Atrial fibrillation with rapid ventricular response Current Visit: Yes Status: Acute Code(s): I48.91 - Unspecified atrial fibrillation - Assessment / Plan Additional Assessment/Plan Details: Patient has acute appendicitis. Patient took her Eliquis at 1 AM this morning. Therefore I think we need to watch her until the Eliquis is out of her system is be 24-48 hours. She will continue with antibiotics. Will switch her to Invanz 1 g at 12 AM today. If the antibodies for she may not need to surgery. She understands is a 1% chance of rupture. Given the fact fissure white count normal and she doesn't have peritoneal signs I think we can easily watch her. If she continues to have pain and develops an elevated white count may then need to do surgery. She fully recovers he may not need to have surgery can just be treated with antibiotic therapy. Her daughter seemed to understand this.
[2018-07-18 09:21] LABS: BILIRUBIN,URINE NEGATIVE (NEG); CLARITY,URINE CLEAR (CLEAR); COLOR,URINE YELLOW (Y); GLUCOSE, URINE (UA) NEGATIVE (NEG); OCCULT BLOOD,URINE NEGATIVE (NEG); PROTEIN,URINE 30 mg/dl (NEG); URINE SAMPLE TYPE CLEAN CATCH URINE
[2018-07-18 09:25] LABS: RBC,URINE 0-1 /hpf; SQUAMOUS EPITHELIAL CELL,UR FEW; URINE CRYSTALS FEW
[2018-07-18] MEDS ORDERED: MORPHINE SULFATE 2 MG/1 ML IVP PRN (09:37)
[2018-07-18] MEDS ORDERED: LIDOCAINE W/ SODIUM BICARB 0.5 ML SYR SUBD PRN (09:37)
[2018-07-18] MEDS ORDERED: ONDANSETRON 4 MG/2 ML VIAL IVP PRN (09:37)
[2018-07-18] MEDS ORDERED: D5-1/2NS + 20mEq KCL 1,000 ML PRIMARY IV SCH (09:37)
--- NOTE | 2018-07-18 10:19 | CONSULT ---
Consult Note - Consult Consult Date: 07/18/18 Reason for Consult: PreOp Consulation : General Surgery Requesting Physician: Dr. Jiang Primary Care Provider: Reggie Mayo MD Past Medical History Medical History: 1. Hypothyroidism. 2. Hypertension. 3. Atrial fibrillation. 4. Coronary artery disease status post 5 vessel bypass in September last year Surgical History: Cholecystectomy, four-vessel bypass surgery Pertinent Family History: Significant for blood clots in her daughter and in several siblings Past Social History: Does not smoke occasionally alcohol. . 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 Has 1 daughter who is described as healthy. Tobacco Use: Never Smoker In the Past 12 Months, Have Used or Abuse Any of the Following Substance: None Review of Systems - Review of Systems All Systems: Reviewed & No Additional Complaints Except as Stated Medication / Allergies Home Medications: Home Medications Medication Instructions Recorded Confirmed Calcitriol 0.25 mcg PO MOWEFR 11/27/17 07/18/18 atorvastatin 40 mg tablet 40 mg PO QDAY #90 tab 06/03/18 07/18/18 metoprolol succinate ER 25 mg 12.5 mg PO BID #90 tab 06/03/18 07/18/18 tablet,extended release 24 hr torsemide 20 mg tablet 20 mg PO QDAY #90 tab 06/03/18 07/18/18 levothyroxine 88 mcg tablet 88 mcg PO DAILY #90 tab 06/05/18 07/18/18 Apixaban [Eliquis] 1 tab PO BID 07/18/18 07/18/18 Ergocalciferol (Vitamin D2) 1 cap PO WEEKLY 07/18/18 07/18/18 [Vitamin D2] Ferrous Sulfate EC [Feosol EC] 325 mg PO PROCEDURE 07/18/18 07/18/18 Metoprolol Succinate 50 mg PO DAILY 07/18/18 07/18/18 Potassium Chloride 1 cap PO DAILY 07/18/18 07/18/18 Allergies/Adverse Reactions: Allergies Allergy/AdvReac Type Severity Reaction Status Date / Time Penicillins AdvReac Unknown RASH Verified 11/05/17 11:14 Exam - Vitals Vital Signs: Vital Signs Temperature 99.3 F Pulse Rate [Pulse Oximeter] 119 Pulse Rate 111 Respiratory Rate 19 Blood Pressure [Left Arm] 139/88 Blood Pressure 138/79 Pulse Ox 92 Oxygen Flow Rate 2 Oxygen Delivery Method Nasal Cannula Height 5 ft 7 in Weight 191 lb 8 oz - General General Appearance: No Acute Distress, Cooperative - Head Head Exam: Normal Inspection - Eye Eye Exam: POSITIVE: Normal Appearance - ENT ENT Exam: POSITIVE: Normal Exam - Neck Neck Exam: Normal Inspection - Respiratory Respiratory Exam: POSITIVE: Clear to Auscultation - Bilaterally - Cardiovascular Cardiovascular Exam: POSITIVE: Irregular Rhythm - GI/Abdominal GI/Abdominal Exam: POSITIVE: Normal Bowel Sounds, Non Tender, Non Distended, Soft, No Organomegaly - Rectal Rectal Exam: POSITIVE: Deferred - External Exam: POSITIVE: Deferred - Extremities Extremities Exam: POSITIVE: Normal Inspection - Back Back Exam: POSITIVE: Normal Inspection - Neurological Neurological Exam: POSITIVE: Alert, Oriented x 3, CN II-XII Intact, No Facial Droop, Speech Intact / Clear, Moves All Extremities Equally - Psychiatric Psychiatric Exam: POSITIVE: Normal Affect Results - Labs CBC and BMP: 07/18/18 04:10 07/18/18 04:10 Assessment and Plan - Patient Problems (1) Acute appendicitis Current Visit: Yes Status: Acute Comment: Continue antibiotics, IV fluid until a bed is available at [facility]. I did speak with the transfer center she is on the waiting list Code(s): K35.80 - Unspecified acute appendicitis Qualifiers: Acute appendicitis type: unspecified acute appendicitis type Qualified Code(s): K35.80 - Unspecified acute appendicitis (2) Atrial fibrillation Current Visit: Yes Status: Acute Comment: We will put her on IV metoprolol if she stays here, continue holding the eliquis. Code(s): I48.91 - Unspecified atrial fibrillation
--- NOTE | 2018-07-18 10:51 | DCSUMMARY ---
Hospitalization Summary Admit Date: 07/18/2018 Discharge Date: 07/18/18 Hospital Course: Transfer diagnoses 1. Acute appendicitis 2. History of atrial fibrillation on eliquis 3. History of coronary artery disease in September 2017 4. History of hypothyroidism 5. History of hyperlipidemia Hospital course This is an 83 years old female with medical history significant for history of coronary artery disease with previous CABG in 2018, history of atrial fibrillation on anticoagulation with eliquis, hypothyroidism who presented to the hospital abdominal pain pain felt over the abdomen then mainly the right lower quadrant there was some nausea and the pain was rated at 7-8 because of that she came into the ER. Evaluation in the ER revealed acute appendicitis. The patient was discussed with Dr. Jiang who suggested transfer because the patient is on anticoagulant and she took elquis at 1 am this morning, they did [place] [facility] and she did not want to be transferred to [facility] so she was admitted to the hospital. Patient did receive Flagyl and Rocephin earlier this morning. She did also receive metoprolol in the ER because her rate was fast. She was in atrial fibrillation. Patient came into the floor her pain seemed to be lower than when she came in about 4/10 she did not appear in distress, was in atrial fibrillation and tenderness in the right lower quadrant was present. Shortly after admission we received a [place] from [facility] [place] available. I did speak with the hospitalist Dr. Bowen who accepted the patient and the patient will be transferred [place] [facility] [place] care. Laboratory Results 07/18/18 07/18/18 07/18/18 04:10 04:10 09:17 WBC 8.66 RBC 4.68 Hgb 14.0 Hct 42.9 MCV 91.7 MCH 29.9 MCHC 32.6 L RDW Std Deviation 46.6 RDW Coeff of Kade 14.2 Plt Count 218 MPV 10.6 Immature Gran % (Auto) 0.1 Neut % (Auto) 81.2 H Lymph % (Auto) 11.5 [place] % (Auto) 6.5 Eos % (Auto) 0.6 Baso % (Auto) 0.1 Immature Gran # (Auto) 0.01 Neut # (Auto) 7.03 Lymph # (Auto) 1.00 [place] # (Auto) 0.56 Eos # (Auto) 0.05 Baso # (Auto) 0.01 WBC Morphology Comment Normal morphology Plt Morphology Comment Normal morphology RBC Morph Comment Normal morphology Sodium 143 Potassium 4.1 Chloride 104 Carbon Dioxide 23 Anion Gap 16 BUN 23 H Creatinine 1.4 H Estimated GFR Staff Forester BUN/Creatinine Ratio 16.42 Glucose 158 H Calculated Osmolality 302.0 H Calcium 8.9 Total Bilirubin 1.9 H AST 24 ALT 24 Alkaline Phosphatase 100 Total Protein 6.9 Albumin 3.9 Globulin 3.0 Albumin/Globulin Ratio 1.30 Lipase 94 Ur Collection Type Clean catch urine Urine Color Yellow Urine Clarity Clear Urine pH 6.0 Ur Specific [place] 1.015 Urine Protein 30 A Urine Glucose (UA) Negative Urine Ketones 15 Urine Occult Blood Negative Urine Nitrate Negative Urine Bilirubin Negative Urine Urobilinogen 2.0 Ur Leukocyte Esterase Negative Urine RBC 0-1 Urine WBC None Ur Squamous Epith Cells Few Ur Renal Epithelial Cell None Urine Crystals Few Urine Bacteria None Urine Casts None Urine Mucus Few Urine Trichomonas None Urine Yeast None Ur Culture Indicated? Culture not set Discharge instruction Diet nothing by mouth Medication Active Medications Famotidine (Pepcid) 20 mg PO BID MELINDA Potassium Chloride/Dextrose/Sod Cl (Pot Chl 20meq + D5-1/2ns) 1,000 mls @ 100 mls/hr PRIMARY IV .Q10H MELINDA Sodium Chloride (Normal Saline 0.9%) 25 mls @ 200 mls/hr IV .Post Infusion PRN PRN Reason: Flush Ertapenem 1 gm/ Sodium (Chloride) 100 mls @ 200 mls/hr IV Q24H MELINDA Lidocaine HCl (Lidocaine Buffered Inj) 0.5 ml SUBD ONCE PRN PRN Reason: IV Starts Morphine Sulfate (Morphine Inj) 2 mg IVP Q2H PRN PRN Reason: Pain Ondansetron HCl (Zofran Inj) 4 mg IVP Q6H PRN PRN Reason: NAUSEA / VOMITING Follow[place] [facility] [place]. Exam - Vitals Vital Signs: Vital Signs Temperature 99.3 F Pulse Rate [Pulse Oximeter] 119 Pulse Rate 111 Respiratory Rate 19 Blood Pressure [Left Arm] 139/88 Blood Pressure 138/79 Pulse Ox 92 Oxygen Flow Rate 2 Oxygen Delivery Method Nasal Cannula Height 5 ft 7 in Weight 191 lb 8 oz - General General Appearance: No Acute Distress, Cooperative - Head Head Exam: Normal Inspection - Eye Eye Exam: POSITIVE: Normal Appearance - ENT ENT Exam: POSITIVE: Normal Exam - Neck Neck Exam: Normal Inspection - Respiratory Respiratory Exam: POSITIVE: Clear to Auscultation - Bilaterally - Cardiovascular Cardiovascular Exam: POSITIVE: Irregular Rhythm, Tachycardia - GI/Abdominal GI/Abdominal Exam: POSITIVE: Normal Bowel Sounds, Non Distended, Soft, No Organomegaly Additional GI/Abdominal Exam Details: Tenderness present in the right lower quadrant - Rectal Rectal Exam: POSITIVE: Deferred - External Exam: POSITIVE: Deferred Exam: POSITIVE: Deferred - Extremities Extremities Exam: POSITIVE: Normal Inspection - Back Back Exam: POSITIVE: Normal Inspection - Neurological Neurological Exam: POSITIVE: Alert, Oriented x 3, CN II-XII Intact, No Facial Droop, Speech Intact / Clear, Moves All Extremities Equally - Psychiatric Psychiatric Exam: POSITIVE: Normal Affect Patient Problems - Patient Problem List (1) Acute appendicitis Current Visit: Yes Status: Acute Code(s): K35.80 - Unspecified acute appendicitis Qualifiers: Acute appendicitis type: unspecified acute appendicitis type Qualified Cod e(s): K35.80 - Unspecified acute appendicitis Category: Medical (2) Atrial fibrillation Current Visit: Yes Status: Acute Code(s): I48.91 - Unspecified atrial fibrillation Category: Medical
[2018-07-18 11:29] VITALS: BP 120/90; RESP 20; TEMP 97.8; O2SAT 93
[2018-07-18] MEDS ORDERED: Ertapenem Inj 1 GM in Sodium Chloride 0.9% 100 ML IV SCH (12:00)
[2018-07-18] MEDS ORDERED: FAMOTIDINE 20 MG TABLET PO SCH (21:00)
== END 2018-07-18 11:15 | disposition short-term general hospital (02) | DRG 395 ==
LOC: ER 03:43 → MED/SURG 08:32
PROVIDERS: ADMIT Surgery; ATTEND Surgery